=== PATIENT | female | born 1995 | race Caucasian/White ===

== ENCOUNTER → 2023-02-27 16:46 | Outpatient (CLI) | payer OTHER, SELFPAY ==
--- NOTE | 2023-02-27 | DI.MRI.S_ITS ---
PROCEDURE: MR ANKLE LT WO CON INDICATIONS: Posterior tibial tendinitis, left leg TECHNIQUE: Noncontrast sagittal T1 spin echo and T2 fast spin echo with fat saturation, axial proton density fast spin echo and T2 fast spin echo with fat saturation, coronal T1 spin echo and T2 fast spin echo with fat saturation through the ankle/hindfoot. COMPARISON: [facility], CR, XR ANKLE 3+ VIEWS LEFT, 12/08/2022, 12:05. FINDINGS: Image quality: Excellent. Bones and joints: Postsurgical changes are noted involving 1st TMT joint and lateral aspect of posterior calcaneus with susceptibility artifacts. There is no gross marrow edema. No fracture or dislocation. No hindfoot coalitions. No osteochondral injuries of the talar dome. No pathologic joint effusions. Medial structures: The posterior tibialis and flexor digitorum longus tendons are mildly thickened with intrasubstance T2 hyperintense signal and surrounding soft tissue edema at the level of mid to distal talus and talonavicular joint. The flexor hallucis longus tendon is intact. The posterior tibial neurovascular bundle appears normal within the tarsal tunnel, without extrinsic mass effect. The deltoid ligament and spring ligament are both thickened. Lateral structures: The anterior talofibular ligament is intact. The calcaneofibular, and posterior talofibular ligaments are thickened with intrasubstance T2 hyperintense signal.. More superiorly, the anterior and posterior tibiofibular ligaments appear intact, as is the intermalleolar ligament. The tibiofibular syndesmosis is normal in width at 2 mm or less. The peroneus longus and brevis tendons demonstrate normal location and morphology. Adjacent bony peroneal tubercle and retrotrochlear prominence are normal in size. The sinus tarsi demonstrates normal fatty signal, without edema, fibrosis, or cyst formation. Visualized sinus tarsi components (cervical ligament, interosseous talocalcaneal ligament, roots of the inferior extensor retinaculum) appear normal. The calcaneonavicular and calcaneocuboid components of the bifurcate ligament appear intact. The dorsal calcaneocuboid ligament appears intact. Anterior structures: The tibialis anterior, extensor hallucis longus, and extensor digitorum longus tendons appear intact. The dorsal talonavicular ligament appears intact. Posterior and plantar structures: Achilles tendon is intact. Medial and lateral bands of the plantar fascia are of normal thickness. No abductor digiti quinti muscle atrophy to suggest Quezada neuropathy. IMPRESSION: 1. Postsurgical changes in midfoot and hindfoot with susceptibility artifacts as above. No gross marrow edema. No acute fracture or dislocation. No osteochondral injuries of talar dome. 2. Tendinosis and low-grade intrasubstance partial-thickness tear involving posterior tibialis tendon and flexor digitorum longus tendon at the level of mid to distal talus and talonavicular joint. 3. Low-grade medial ankle ligament sprain. 4. Low to moderate grade sprain/partial-thickness tear involving posterior talofibular ligament and calcaneofibular ligament. 5. Rest of the ankle tendons and ligaments are intact. Dictated by: Valdo Nash M.D. on 03/02/2023 at 9:11 Approved by: Valdo Nash M.D. on 03/02/2023 at 9:26
== END ==
PROVIDERS: Referring Provider Podiatrist; Visit Provider Podiatrist
DX: M76.822 Posterior tibial tendinitis, left leg (principal); S93.492A Sprain of other ligament of left ankle, initial encounter; S93.412A Sprain of calcaneofibular ligament of left ankle, initial encounter
CPT/HCPCS: 73721

== ENCOUNTER → 2023-06-02 08:34 | Outpatient (CLI) | payer OTHER, SELFPAY ==
--- NOTE | 2023-06-02 | DI.US.S_ITS ---
PROCEDURE: US OB LIMITED INDICATIONS: GROWTH OUTSIDE/PRIOR DATING DATA: Last menstrual period (LMP): 10/20/2022. LMP-based estimated date of delivery (REY): 07/27/2023. First dating scan (date and location): 03/10/2023. Estimated date of delivery (REY) from first dating scan: 07/27/2023. The calculations are made using the REY of 07/27/2023. TECHNIQUE: Real-time scanning was performed of the fetus, with image documentation and biometric measurements. Endovaginal scanning: No COMPARISON: None. FINDINGS: General: A single living intrauterine gestation is present. Presentation: Vertex. Placenta: Placental position is anterior, without previa. Amniotic fluid index: 16.7 cm, normal range is 5-24 cm. Single deepest vertical pocket is 4.8 cm. heart rate: 145 beats per minute. Maternal cervical canal: 3.3 cm long. Normal lower limit is 2.5 cm. biometrics: Biparietal diameter: 8.6, 34 weeks 4 days Head circumference: 30.8, 34 weeks 2 days Abdominal circumference: 29.8, 33 weeks 5 days Femur length: 6.4, 32 weeks 6 days Clinically estimated gestational age: 32 weeks and 1 day Composite gestational age from present scan: 33 weeks and 6 days Estimated weight and percentile: 2243 grams, 85th percentile Other: Limited views of the stomach/abdomen, kidneys and urinary bladder/pelvis are within normal limits. IMPRESSION: 1. Single living intrauterine gestation in vertex presentation. 2. Clinically estimated gestational age is 32 weeks and 1 day and gestational age from present scan is 33 weeks and 6 days. 3. Estimated weight is at 85th percentile. Dictated by: Maurilio Reilly M.D. on 06/02/2023 at 10:52 Approved by: Maurilio Reilly M.D. on 06/02/2023 at 11:37
== END ==
PROVIDERS: Referring Provider Advanced Practice Midwife; Visit Provider Advanced Practice Midwife
DX: O99.213 Obesity complicating pregnancy, third trimester (principal); Z3A.33 33 weeks gestation of pregnancy
CPT/HCPCS: 76815

== ENCOUNTER 2023-06-29 21:09 | Inpatient (IN) | payer OTHER, SELFPAY ==
[2023-06-29 22:08] LABS: Creatinine Urine Random 56.9 mg/dL; Protein (Total) Urine Random 19 mg/dL (0-12); Protein Creatinine Ratio Urine 0.33 GRAM/24H
[2023-06-29 22:27] LABS: Add Manual Diff / Slide Review NO; Basophils Absolute Auto 0 /uL (0-100); Basophils Percent Auto 0.4 % (0-2); Eosinophils Absolute Auto 0 /uL (0-450); Eosinophils Percent Auto 0.4 % (2-4); Hematocrit 33.3 % (36-46); Hemoglobin 11.6 g/dL (12.0-16.0); Lymphocytes Absolute Auto 2400 /uL (1100-4500); Lymphocytes Percent Auto 28.2 % (25-40); Mean Corpuscular HGB Conc 34.7 % (30-36); Mean Corpuscular Hemoglobin 31.5 PG (26-34); Mean Corpuscular Volume 90.6 fL (80-100); Monocytes Absolute Auto 500 /uL (0-900); Monocytes Percent Auto 5.8 % (3-14); Neutrophils Absolute Auto 5500 /uL (1500-7000); Neutrophils Percent Auto 65.2 % (50-75); Platelet Count 185 X10^3/uL (150-400); Red Blood Cell Count 3.67 X10^6/uL (4.0-5.2); Red Cell Distribution Width 13.3 % (11.6-14.8); White Blood Cell Count 8.4 X10^3/uL (4.5-11.0)
[2023-06-29 22:38] LABS: Aspartate Aminotransferase 26 IU/L (14-36); BUN Creatinine Ratio 11.9 (6-22); Blood Urea Nitrogen 7 mg/dL (7-17); Estimated Glomerular Filt Rate > 60 mL/min (>60); Uric Acid 3.6 mg/dL (2.5-6.2)
--- NOTE | 2023-06-29 23:34 | P.HPOB_ITS ---
OB HPI Date/Time Date of admission: 06/29/23 Date Patient Seen: 06/29/23 Time Patient Seen: 22:20 History of Present Condition Chief complaint: : 1 Para: 0 Estimated Date of Delivery: 07/27/23 Estimated Gestational Age (weeks): 36.0 Narrative: Sofiya Castillo is a 27 year old female @ 36wks 0days by sure LMP concordant with 9wk US who presents for evaluation of elevated BP. Was seen in clinic today with elevated BP. Had a mild headache that has not improved with Tylenol 1,000mg and was encouraged to come into the hospital for evaluation this evening. Has also noticed steadily worsening edema in her feet, ankles, calves and hands. Incidentally, received her influenza vaccine 06/26/23 and her RSV vaccine today. Has been taking LDASA throughout (risk factors: nullipara, BMI>30). Lots of FM and mild cramping. No vision changes, RUQ pain, vaginal bleeding or leaking of fluid. Full care with CNMs. Planning an epidural. Partner is present and supportive. Indications Indication for induction OB: gestational HTN/pre-eclampsia History of Present care: good care, initiated at week # (9), number of visits (6) and pounds weight gain (30) Dating criteria: LMP confirmed by 1st trimester US Ultrasounds: normal mid trimester US Obstetrical complications: preeclampsia Medical complications: other (hypothyroid, depression) Preadmission Labs Blood type: A (+) positive -: Antibody screen: negative, GBS status: unknown, HBsAG: negative, HIV: negative and RPR/VDLR: negative -: Chlamydia screen: not detected and Gonorrhea screen: not detected -: Rubella: immune and Varicella: immune HCT: 34.8 HCAB: negative Cell-free DNA: Negative 1 hr GTT: 88 Evaluation Evaluation Baseline heart rate: 155 Variability: Moderate (11-25) monitor accelerations: Present Monitor Decelerations: Absent Contraction Frequency (minutes): 5 Uterine Contraction Intensity: Mild Status: Category l Dilation (cm): 3.5 Effacement (%): 80 Dilation: 3-4 cm Effacement: >/=80% station: -3 Position of cervix: posterior Consistency: soft Gomez score: 7 [facility] Medical History (Updated 06/29/23 @ 23:58 by Jeannine Steinberg CNM) Obesity (BMI 30-39.9) Depression Hypothyroidism Surgical History (Updated 06/29/23 @ 23:58 by Jeannine Steinberg CNM) H/O foot surgery Family History (Updated 06/29/23 @ 23:59 by Jeannine Steinberg CNM) Mother Hypertension Father Cancer Social History (Updated 06/30/23 @ 00:00 by Jeannine Steinberg CNM) marital status: unmarried,living together household members: significant other lives independently: Yes housing: house education level: college occupational status: employed Smoking Status: Never smoker substance use type: does not use Meds Home Medications and Allergies Home Medications Medication Instructions Recorded Confirmed Type aspirin 81 mg PO DAILY 06/30/23 06/30/23 History levothyroxine 100 mcg tablet 100 mcg PO DAILY 06/30/23 06/30/23 History sertraline 50 mg tablet 150 mg PO DAILY 06/30/23 06/30/23 History Allergies Allergy/AdvReac Type Severity Reaction Status Date / Time Penicillins AdvReac Mild Vomiting Verified 06/30/23 01:34 Review of Systems Review of Systems ROS: Yes All systems reviewed with the patient and are negative except as otherwise documented OB Exam Vital signs Blood Pressure: 153/80 Pulse Rate: 93 Temperature: 36.3 F Resp Effort & Inspection: normal respiratory effort Auscultation: clear to auscultation bilaterally Cardio Rate: regular rate Rhythm: regular rhythm Extremities Lower extremity: Yes edema Laterality: bilateral DTR's: Rt Patellar: 1+, Lt Patellar: 1+, Rt Brachial: 1+ and Lt Brachial: 1+ Presentation: vertex Other: GBS PCR collected and sent Objective Labs 06/29/23 22:13 06/29/23 22:13 Labs: Laboratory Results - last 24 hr 06/29/23 06/29/23 21:15 22:13 WBC 8.4 RBC 3.67 L Hgb 11.6 L Hct 33.3 L MCV 90.6 MCH 31.5 MCHC 34.7 RDW 13.3 Plt Count 185 Neut % (Auto) 65.2 Lymph % (Auto) 28.2 Izard % (Auto) 5.8 Eos % (Auto) 0.4 L Baso % (Auto) 0.4 Neut # (Auto) 5500 Lymph # (Auto) 2400 Izard # (Auto) 500 Eos # (Auto) 0 Baso # (Auto) 0 BUN 7 Creatinine 0.59 Estimated GFR > 60 BUN/Creatinine Ratio 11.9 Uric Acid 3.6 AST 26 U Random Total Protein 19 H Urine Creatinine 56.9 Protein/Creatinin Ratio 0.33 Blood Type A Positive Antibody Screen Negative Assessment and Plan Assessment and Plan Assessment and Plan narrative: A: nullipara Preeclampsia with severe features Favorable for IOL GBS prophylaxis indicated Hypothyroidism stable on levothyroxine Depression stable on sertraline Cat I FHR P: Counseled on diagnosis of preeclampsia with severe features, given persistent headache this evening. Recommend admission and IOL and patient agrees. Informed consent obtained. Consulted [facility]/ Dr. Dunbar who recommended admission and IOL, but hold MgSO4 at this time. Betamethasone 12mg IM now. Pitocin, per protocol. Epidural when requested. Will initiate cefazolin if GB SPCR results positive or active labor begins prior to result. BP Q1hr and will consult OB if BPs are climbing or reach severe range. Reassess in 4 hours or sooner, PRN.
[2023-06-30 00:15] VITALS: BP 153/80; PULSE 93; TEMP 2.4; TEMP 36.3
[2023-06-30] MEDS: LACTATED RINGERS 1,000 ML 100 ML IV ×5 (00:16→17:45)
[2023-06-30] MEDS: OXYTOCIN PREMIX 30 UNIT/500 ML PLAST..BAG IV (00:16)
[2023-06-30] MEDS: BETAMETHASONE 30 MG/5 ML MDV 12 MG IM (00:17)
[2023-06-30 00:47] LABS: Strep Grp B PCR NEG for Grp B Strep
[2023-06-30 01:04] LABS: Free T4, Direct Thyroxine 0.76 ng/dL (0.78-2.19)
[2023-06-30 01:18] LABS: Thyroid Stimulating Hormone 4.87 uIU/mL (0.47-4.68)
[2023-06-30 01:32] VITALS: BP 134/77
--- NOTE | 2023-06-30 04:00 | PM.OBPNLAB ---
Date/Time Date Patient Seen: 06/30/23 Time Patient Seen: 04:00 Pain Control Pain control: tolerating well Comments: Patient sleeping with supportive partner rooming in. GBS PCR resulted negative. Pelvic Exam Dilation (cm): 3 Effacement (%): 80 station: -3 Amniotic membrane status: Intact Comments: CE deferred Contractions Contractions on admission: regular Monitor mode: External Pitocin rate (mU/min): 12 Contraction frequency (min): 3 Contraction duration (min): 1 Contraction pattern: Regular Contraction intensity: Mild Status status: Category l Heart Rate Baseline: 130 Monitor Accelerations: Present Monitor Decelerations: Variable Monitor Variability: Moderate Assessment and Plan Assessment: induction ongoing Plan: continuous present management
[2023-06-30] MEDS: LEVOTHYROXINE 100 MCG TABLET PO (06:13)
--- NOTE | 2023-06-30 07:08 | PM.OBPNLAB ---
Date/Time Date Patient Seen: 06/30/23 Time Patient Seen: 07:08 Pain Control Pain control: tolerating well Comments: Has been resting all night, but reports little sleep. Just started feeling menstrual like cramping a few hours ago. Denies pain, though rates discomfort at 4/10. Mild headache persists overnight. No RUQ pain, vision changes, vaginal bleeding or leaking fluid. VS: BP 141/87, HR 95, T 36.1C Pelvic Exam Dilation (cm): 4 Effacement (%): 80 station: -2 Amniotic membrane status: Intact Contractions Monitor mode: External Pitocin rate (mU/min): 18 Contraction frequency (min): 2 Contraction duration (min): 1 Contraction pattern: Regular Contraction intensity: Moderate Status status: Category ll Heart Rate Baseline: 150 Monitor Accelerations: Present Monitor Decelerations: Variable Monitor Variability: Moderate Comments: overall reassuring Assessment and Plan Assessment: induction ongoing Plan: continuous present management Comments: Discussed recommendation for AROM. Patient requests breakfast, then epidural, then AROM. CNMs turning over at this time. RN to call TYRON Tapia once epidural has been placed.
--- NOTE | 2023-06-30 08:40 | PM.OBPNLAB ---
Date/Time Date Patient Seen: 06/30/23 Time Patient Seen: 08:30 Pain Control Pain control: tolerating well (planning epidural soon) Comments: VS: BP: 139/80, previously 152/92 HR: 95 bpm Temp: 36.1 C temporal Pelvic Exam Dilation (cm): 4 Effacement (%): 80 station: -2 Amniotic membrane status: Ruptured (by CNM at 0846) Contractions Monitor mode: External Pitocin rate (mU/min): 18 (turned down to 10 mu/min with AROM) Contraction frequency (min): 2 (2-6) Contraction duration (min): 60 Contraction pattern: Regular Contraction intensity: Moderate Status status: Category ll Heart Rate Baseline: 155 Monitor Accelerations: Present Monitor Decelerations: Variable Monitor Variability: Moderate Assessment and Plan Assessment: induction ongoing Comments: AROM, clear fluid Pitocin turned down with AROM, continue titrating as needed for good contraction pattern. Recheck in 4 hours.
[2023-06-30] MEDS: ONDANSETRON 4 MG/2 ML INJ IV (09:20)
--- NOTE | 2023-06-30 10:00 | PM.AN.REGBLK ---
[facility] <Ashvin Lawson MD - Last Filed: 06/30/23 16:00> Pre-procedure Procedure: Continuous Lumbar Epidural for L&D Attending OB provider: Rachael Roach PMH/ROS narrative: 27yo female 36 weeks gestation, past medical history significant for hypothyroidism and depression. Presented with Preeclampsia. PSH/Anesthesia history narrative: Bilateral feet, history of N/V on emergence Exam narrative: Normal exam, Zofran IV pre-procedure ASA Class: III Labs: Hct 33.3 % (36-46) L 06/29/23 22:13 Plt Count 185 X10^3/uL (150-400) 06/29/23 22:13 Medications: Current Medications Generic Name Dose Route Start Last Admin Trade Name Freq PRN Reason Stop Dose Admin Carboprost Tromethamine 250 mcg 06/29/23 23:21 Carboprost 250 Mcg/Ml Ampul IM Q90M PRN Bleeding Diphenhydramine HCl 25 mg 06/30/23 09:56 Diphenhydramine 50 Mg/Ml Vial IV Q10M PRN Pruritis Ephedrine Sulfate 5 mg 06/30/23 09:56 Ephedrine 50 Mg/Ml Vial IV Q5M PRN Blood pressure decrease more than 20% of baseline. Fentanyl 100 mcg 06/29/23 23:21 Fentanyl 100 Mcg/2 Ml Inj IV Q1H PRN Pain, Severe (7-10) Lactated Ringer's 1,000 mls @ 100 mls/hr 06/29/23 23:30 06/30/23 09:51 Lactated Ringers IV 100 mls/hr CONT TINA Administration Oxytocin/Lactated Ringer's 30 unit in 500 mls @ 200 mls/hr 06/29/23 23:21 Oxytocin Premix IV CONT PRN Bleeding Protocol Tranexamic Acid 1,000 mg/ 100 mls @ 200 mls/hr 06/29/23 23:21 Sodium Chloride IV NOW PRN Bleeding Oxytocin/Lactated Ringer's 30 unit in 500 mls @ 2 mls/hr 06/29/23 23:30 06/30/23 00:16 Oxytocin Premix IV 2 milliunit/min TITRATE TINA 2 mls/hr Administration Protocol 2 MILLIUNIT/MIN Levothyroxine Sodium 100 mcg 06/30/23 06:00 01/09/24 06:13 Levothyroxine 100 Mcg Tablet PO 100 mcg DAILY@0600 TINA Administration Lidocaine HCl 20 ml 06/29/23 23:21 Lidocaine 1% 20 Ml INJ INTRA-OP PRN Post Delivery Methylergonovine Maleate 0.2 mg 06/29/23 23:21 Methylergonovine 0.2 Mg Tablet PO Q6HR PRN Heavy Bleeding Methylergonovine Maleate 0.2 mg 06/29/23 23:21 Methylergonovine 0.2 Mg/Ml Vial IM NOW PRN Bleeding Misoprostol 800 mcg 06/29/23 23:21 Misoprostol 200 Mcg Tablet DE NOW PRN Bleeding Misoprostol 400 mcg 06/29/23 23:21 Misoprostol 200 Mcg Tablet SL NOW PRN Bleeding Nalbuphine HCl 2.5 mg 06/30/23 09:56 Nalbuphine 20 Mg/Ml Ampul IV Q10M PRN Pruritis Naloxone HCl 0.2 mg 06/29/23 23:21 Naloxone 0.4 Mg/Ml Vial IV Q2MIN PRN Opiate Reversal Naloxone HCl 0.4 mg 06/30/23 09:59 Naloxone 0.4 Mg/Ml Vial IV Q2MIN PRN Opiate Reversal Oxytocin 10 unit 06/29/23 23:21 Oxytocin 10 Unit/Ml Vial IM NOW PRN Bleeding Sertraline HCl 150 mg 06/30/23 21:00 Sertraline 50 Mg Tablet PO BEDTIME [facility] Allergies: Allergies Allergy/AdvReac Type Severity Reaction Status Date / Time Penicillins AdvReac Mild Vomiting Verified 06/30/23 01:34 Procedure Insertion date: 06/30/23 Insertion time: 09:25 Prep/Local: betadine x3 and 1% lidocaine Interspace: L3-L4 Patient position: sitting Needle: 18 gauge Jordanatead Loss of resistance with: air (+ Saline) MIYA at (cm): 8 Catheter placed at SKIN (cm): 14 Catheter in SPACE (cm): 6 Sensory level: 1515: T9 Insertion: No CSF, No Blood, No Paresthesia with insertion, No Paresthesia with injection and No Test dose reaction Initial Medications TEST DOSE time: 09:30 BOLUS DOSE time: 09:30 BOLUS DOSE (mL): 7 BOLUS DOSE med: other (2% Lidocaine) Infusion INFUSION: 0.125% bupivacaine and with fentanyl 2 mcg/mL Initial rate (mL/hr): 6 Subsequent interventions: Initial rate 6ml/hr, PCEA 3ml, Lockout 15min, 1hr max 20. 1105: Pt c/o nausea, SBP 20+ points below preop value, Phenylephrine 100mcg. Epidural pump rate reduced to 5ml/hr. 1318: C/O pelvic pressure, bolus 0.5% Bupivacaine 3ml with 2% Lidocaine 2ml. Rate increased to 8ml/hr. 1515: C/O right-sided discomfort, site assessed, about 1cm of catheter out from the original liberty at skin, 2% Lidocaine 5ml bolus, PCEA dose increased to 5ml, 20min lockout, 1hr limit 23ml. Sensory level at T9. Catheter re-taped, re-educated about being careful while repositioning. Post-procedure Anesthesia date START: 06/30/23 Anesthesia time START: 09:25 <Taj Alexis, DO - Last Filed: 07/01/23 09:26> Infusion Subsequent interventions: Initial rate 6ml/hr, PCEA 3ml, Lockout 15min, 1hr max 20. 1105: Pt c/o nausea, SBP 20+ points below preop value, Phenylephrine 100mcg. Epidural pump rate reduced to 5ml/hr. 1318: C/O pelvic pressure, bolus 0.5% Bupivacaine 3ml with 2% Lidocaine 2ml. Rate increased to 8ml/hr. 1515: C/O right-sided discomfort, site assessed, about 1cm of catheter out from the original liberty at skin, 2% Lidocaine 5ml bolus, PCEA dose increased to 5ml, 20min lockout, 1hr limit 23ml. Sensory level at T9. Catheter re-taped, re-educated about being careful while repositioning. 18:00 rate increased to 10. Pt comfortable, but had pushed PCEA button several times. at 2101. Post-procedure Anesthesia date END: 06/30/23 Anesthesia time END: 21:11 Post-procedure Anesthesia Assessment: Yes CV function: HR/BP stable, Yes Resp function: RR/sat/airway adequate, Yes Post-op hydration adequate, Yes Pain control adequate, Yes Nausea & vomiting absent, Yes Temperature > 36 C, Yes Mental status appropriate and No Anesthesia complications
--- NOTE | 2023-06-30 14:01 | PM.OBPNLAB ---
Date/Time Date Patient Seen: 06/30/23 Time Patient Seen: 14:01 Pain Control Pain control: tolerating well and epidural Comments: Sofiya is comfortable with epidural. Wondering if she is going to be having a baby today. Feels well supported by her partner and her mom. Consents to vaginal exam by MW and SNM. Drinking water periodically. Pelvic Exam Dilation (cm): 5 Effacement (%): 90 station: 0 Amniotic membrane status: Ruptured (AROM @ 0846) Comments: VS: BP: 111/61 HR: 115 bpm T: 37.8 (temporal) Contractions Monitor mode: External Pitocin rate (mU/min): 13 Contraction frequency (min): 2 (2-3) Contraction duration (min): 60 Contraction pattern: Regular Contraction intensity: Moderate Status status: Category ll Heart Rate Baseline: 125 Monitor Accelerations: Present Monitor Decelerations: Early and Variable Monitor Variability: Moderate Assessment and Plan Comments: @ 36w1d in early labor. Rh positive GBS negative AROM x 5hr pre-e without SF Pain managed w/epidural Status: Cat 1 Plan: Continue IOL, titrate pitocin per protocol. Recommend frequent position changes. Check in 4hr or sooner prn.
[2023-06-30] MEDS: FENT 2MCG/ML BUPIV 0.125% EPI 200 MCG/100 ML PLAST..BAG 6 MCG EPIDURAL (17:30)
--- NOTE | 2023-06-30 18:52 | PM.OBPNLAB ---
Date/Time Date Patient Seen: 06/30/23 Time Patient Seen: 17:20 Pain Control Pain control: epidural Comments: Sofiya was comfortable until moved to a new labor bed, then epidural got misplaced approx 1 cm. She declined replacement. Coping well and thrilled to be compelely dilated and ready to push. Pelvic Exam Dilation (cm): 10 Effacement (%): 100 station: -2 Amniotic membrane status: Intact Comments: Vital Signs BP 118/59 HR 100 Temp: 37.4 C Contractions Monitor mode: External Pitocin rate (mU/min): 18 Contraction frequency (min): 2 Contraction pattern: Regular Contraction intensity: Moderate Status status: Category ll Heart Rate Baseline: 120 (wandering baseline) Monitor Accelerations: Present Monitor Decelerations: Absent and Variable Monitor Variability: Moderate Assessment and Plan Comments: at 36w1d by LMP confirmed by early ultrasound IOL r/to Pre-eclampsia GBS negative Rh positive Hypothyroid Depression 2nd stage labor Cat 2 FHR Initiate pushing Plan for RT and peds present at delivery Anticipate
[2023-06-30] MEDS: TRANEXAMIC ACID 1,000 MG in SODIUM CHLORIDE 0.9% 100 ML 200 MG IV (21:15)
[2023-06-30] MEDS: miSOPROStoL 200 MCG TABLET 800 MCG PR (21:15)
--- NOTE | 2023-06-30 22:01 | P.PCNOB_ITS ---
Events: Pre-Eclampsia and Labor Induction Labor & Delivery Delivery date: 06/30/23 Intrapartal Events: Mild Preeclampsia (pre-term) Cervical ripening method: none Induction method: per pitocin protocol Delivery augmentation: rupture of membranes Delivery monitor: external FHT Route of delivery: Episiotomy description: None L&D Laceration Description: Perineal - 1st Degree and Vaginal - 2nd Degree Delivery repair: vicryl Quantitative Blood Loss: 1,383 Anesthesia Type: Epidural Narrative: Labor progressed well. Sofiya was complete at 1752 and started pushing actively approx 30 min later. She pushed effectively for a average 2nd stage. FHR was Cat 1 and 2 throughout 2nd stage. NSVB of baby at 2101, LOP, shoulders delivered easily. Baby was placed on maternal abdomen when Sofiya was ready to receive him/her. Apgars 5/9. They remained skin to skin fpr 1 minute and then cord clamped and cut by CNM and taken to warmer. Cord segment saved for labs. Pitocin given IV at 350 mu/min. Placenta delivered spontaneously with maternal efforts and appeared to be intact w3VC. Prior to placenta, approx 650 mL (including some fluid) and with placenta, another 350 mL weighed after placental delivery and moderate bleeding continued despite fundal massage. Perineum and vagina inspected and bleeding sulcal laceration found and repaired rapidly with 3-0 vicryl with good effect. At same time, TXA given IV and 800 mcg misoprostol given (400 mcg oral, 400 mcg buccal). OB called due to PPH; by the time she arrived, bleeding was well managed. Sofiya was asymptomtic for PPH, and got up to void less than 2 hours after delivery. [place] assessed at [facility], then returned to [facility] with stable vital signs including SpO2. Grunting, so assessed at the [facility] again, wtih good results, and returned to [facility] again. Due to continued grunting & nasal flaring baby taken one more time to [facility] to be given CPAP to see if that helped him breathe more easily. At that time, baby was using more accessory muscles and posturing, so peds was called to bedside to assess; RT and RNs already present and providing care. Plan to transfer to [facility] tonight; unable to go by air due to windy night. Carlyn McKittrick [employer], CNM, IBCLC [place] Baby 1: gender: Male Presentation: vertex Position: Occiput Posterior Placenta delivery description: Spontaneous and Expressed Cord Vessel Description: 3 Vessels and Clamped/Cut score (1 min): 5 score (5 min): 9 Plan for aftercare: Routine care (Repeat PIH panel in AM. Discharge when stable. ) and Other
[2023-06-30 23:13] LABS: Hematocrit 29.3 % (36-46); Hemoglobin 9.9 g/dL (12.0-16.0)
[2023-07-01] MEDS: KETOROLAC 30 MG/ML VIAL IV (01:12)
[2023-07-01] MEDS: ACETAMINOPHEN 325 MG TABLET 650 MG PO ×2 (01:12→09:38)
[2023-07-01] MEDS: SERTRALINE 50 MG TABLET 150 MG PO (04:19)
[2023-07-01 06:53] LABS: Add Manual Diff / Slide Review NO; Basophils Absolute Auto 0 /uL (0-100); Basophils Percent Auto 0.2 % (0-2); Eosinophils Absolute Auto 0 /uL (0-450); Hematocrit 26.5 % (36-46); Hemoglobin 9.1 g/dL (12.0-16.0); Lymphocytes Absolute Auto 2300 /uL (1100-4500); Lymphocytes Percent Auto 15.7 % (25-40); Mean Corpuscular HGB Conc 34.3 % (30-36); Mean Corpuscular Hemoglobin 31.3 PG (26-34); Mean Corpuscular Volume 91.4 fL (80-100); Monocytes Absolute Auto 1000 /uL (0-900); Monocytes Percent Auto 6.8 % (3-14); Neutrophils Absolute Auto 11200 /uL (1500-7000); Neutrophils Percent Auto 77.3 % (50-75); Platelet Count 170 X10^3/uL (150-400); Red Cell Distribution Width 13.2 % (11.6-14.8); White Blood Cell Count 14.5 X10^3/uL (4.5-11.0)
[2023-07-01 07:12] LABS: Alanine Aminotransferase 21 IU/L (<35); Albumin 2.7 g/dL (3.5-5.0); Alkaline Phosphatase 120 U/L (38-126); Aspartate Aminotransferase 43 IU/L (14-36); BUN Creatinine Ratio 14.5 (6-22); Bilirubin Total 0.3 mg/dL (0.2-1.3); Blood Urea Nitrogen 8 mg/dL (7-17); Calcium 8.8 mg/dL (8.4-10.2); Carbon Dioxide 23 mmol/L (22-32); Chloride 106 mmol/L (98-107); Estimated Glomerular Filt Rate > 60 mL/min (>60); Globulin 2.8 g/dL (1.7-4.1); Glucose 100 mg/dL (70-100); HEMOLYSIS < 15 (0-50); Potassium 3.9 mmol/L (3.4-5.1); Sodium 132 mmol/L (137-145); Total Protein 5.5 g/dL (6.3-8.2)
[2023-07-01] MEDS: LEVOTHYROXINE 100 MCG TABLET PO (07:13)
[2023-07-01] MEDS: IBUPROFEN 600 MG TABLET PO (09:38)
[2023-07-01 12:11] VITALS: BP 140/77; PULSE 93; RESP 18; TEMP 37.3
--- NOTE | 2023-07-01 19:07 | P.DS_ITS ---
Discharge Providers Provider Date of admission: 06/29/23 21:09 Discharge Date: 07/01/23 Consults: 06/29/23 23:21 Consult to Anesthesiology Urgent Comment: Consulting Provider: Ashvin Lawson Reason for consultation: Epidural Has provider been notified: No Discharge provider: Carlyn Tapia CNM, ARNP Summary Hospital Course Date Patient Seen: 07/01/23 Time Patient Seen: 10:00 Diagnoses: Pre-eclampsia (o14) hemorrhage (o72) 070 [id number] Hospital Course: Sofiya was admitted with hypertension and proteinuria and the decision was made to induce her labor. Pitocin, AROM, epidural, and pushing for 3 hours resulted in NSVB of viable baby boy in LOP position. PPH of 1383 mL from uterine atony and sulcal laceration treated with pitocin, misoprostol, TXA and repair. Normal PIH panel 10 hours after delivery. Discharged early to be with baby after reviewing case with Dr. Nas DO with close follow up planned. Peripartum Data Delivery Method: Natural Vaginal Laceration Description: Perineal - 1st Degree and Vaginal - 2nd Degree Procedures: NSVB. Laceration repair. 1: Gender: Male Disposition of : NICU ([facility] d/t seizure activity) Discharge Diagnosis (1) Pre-eclampsia affecting puerperium: Status: Acute (2) hemorrhage: Status: Acute Time Spent with Patient Time attestation: Total time spent providing and/or coordinating discharge services: Objective Labs 07/01/23 06:43 07/01/23 06:43 Labs: Laboratory Results - last 24 hr 06/30/23 07/01/23 23:05 06:43 WBC 14.5 H D RBC 2.90 L Hgb 9.9 L 9.1 L Hct 29.3 L 26.5 L MCV 91.4 MCH 31.3 MCHC 34.3 RDW 13.2 Plt Count 170 Neut % (Auto) 77.3 H Lymph % (Auto) 15.7 L [place] % (Auto) 6.8 Eos % (Auto) 0.0 L Baso % (Auto) 0.2 Neut # (Auto) 37234 H Lymph # (Auto) 2300 [place] # (Auto) 1000 H Eos # (Auto) 0 Baso # (Auto) 0 Sodium 132 L Potassium 3.9 Chloride 106 Carbon Dioxide 23 BUN 8 Creatinine 0.55 Estimated GFR > 60 BUN/Creatinine Ratio 14.5 Glucose 100 Calcium 8.8 Total Bilirubin 0.3 AST 43 H ALT 21 Alkaline Phosphatase 120 Total Protein 5.5 L Albumin 2.7 L Globulin 2.8 Albumin/Globulin Ratio 1.0 Exam Vital Signs (past 8 hours): - 07/01/23 12:11 Temperature 99.1 F Pulse Rate 93 H Respiratory Rate 18 Blood Pressure 140/77 Discharge Plan Discharge Plan Patient Disposition: Home Discharge orders & Medications Prescriptions: Continued levothyroxine 100 mcg tablet 100 mcg PO DAILY sertraline 50 mg tablet 150 mg PO DAILY Discontinued aspirin 81 mg PO DAILY Follow up/Referrals: Carlyn Tapia, TYRON, [employer] [Advanced Office Spec] - Visit Report/Discharge Packet Instructions: Pre-eclampsia, Hemorrhage, DI for Depression Stand Alone Forms: Patient Portal/API, Stroke Signs & Symptoms
== END 2023-07-01 11:58 | disposition home or self-care (01) | DRG 807 ==
PROVIDERS: Advanced Practice Midwife; Admitting Provider Nurse Practitioner Obstetrics & Gynecology; Referring Provider Nurse Practitioner Obstetrics & Gynecology; Visit Provider Nurse Practitioner Obstetrics & Gynecology
DX: O14.04 Mild to moderate pre-eclampsia, complicating childbirth (principal); Z37.0 Single live birth; O60.14X0 Preterm labor third trimester with preterm delivery third trimester, not applicable or unspecified; O70.1 Second degree perineal laceration during delivery; O99.344 Other mental disorders complicating childbirth; F32.A Depression, unspecified; Z3A.36 36 weeks gestation of pregnancy; O70.0 First degree perineal laceration during delivery; O72.1 Other immediate postpartum hemorrhage; O99.284 Endocrine, nutritional and metabolic diseases complicating childbirth; E03.9 Hypothyroidism, unspecified
CPT/HCPCS: 36415; 59050; 59200; 80053; 82570; 84156; 84439; 84443; 84450; 84550; 85014; 85018; 85025; 86850; 86900; 86901; 87081; 87653; G0379; J0702; J1885; J2405; J2590; S0191

== ENCOUNTER → 2023-07-29 08:25 | Outpatient (CLI) | payer OTHER, SELFPAY ==
[2023-07-29 09:47] LABS: Prolactin 207.9 ng/mL (3.0-18.6)
[2023-07-29 10:43] LABS: Thyroid Stimulating Hormone 1.37 uIU/mL (0.47-4.68)
== END ==
PROVIDERS: Referring Provider Advanced Practice Midwife; Visit Provider Advanced Practice Midwife
DX: O92.70 Unspecified disorders of lactation (principal); E03.9 Hypothyroidism, unspecified
CPT/HCPCS: 36415; 84146; 84439; 84443